=== PATIENT | male | born 1945 | race Hispanic/Latino ===

== ENCOUNTER → 2017-11-20 | Outpatient (CLI) | payer OTHER ==
[~2017-11-20] VITALS: Ht 157.5 cm; Wt 84.4 kg
[~2017-11-20] MED LIST: REGADENOSON 0.4 MG/5 ML PF SYG IVP SCH
== END | disposition home or self-care (01) ==
LOC: EDUNIT# 08:00 → SHCH 10:00
PROVIDERS: ATTEND Internal Medicine Cardiovascular Disease
DX: I25.810 Atherosclerosis of coronary artery bypass graft(s) without angina pectoris (principal); R07.9 Chest pain, unspecified
CPT/HCPCS: 78452; 93017; 96374; A9500 ×2; J2785

== ENCOUNTER → 2020-02-04 | Outpatient (CLI) | payer OTHER ==
[~2020-02-04] VITALS: Ht 157.5 cm; Wt 78.0 kg
[2020-02-04 12:03] LABS: BASOPHILS % (AUTO) 0.6 % (0.0-5.0); EOSINOPHILS % (AUTO) 3.2 % (0.0-8.0); LYMPHOCYTES % (AUTO) 15.2 % (21.0-51.0); MEAN CORPUSCULAR HEMOGLOBIN 30.5 pg (27.0-33.0); MEAN CORPUSCULAR HGB CONC 33.9 g/dL (32.0-36.0); MEAN CORPUSCULAR VOLUME 89.9 fL (79-99); NEUTROPHILS % (AUTO) 73.4 % (40.0-77.0); PLATELET COUNT (AUTO) 148 K/uL (130-400); RED BLOOD CELL COUNT(AUTO) 4.56 MIL/uL (4.50-6.20); RED CELL DISTRIBUTION WIDTH 13.7 % (11.0-15.5); WHITE BLOOD COUNT (AUTO) 8.5 K/uL (4.8-10.8)
[2020-02-04 12:07] LABS: APPEARANCE,URINE Clear (CLEAR); BILIRUBIN,URINE Negative (NEGATIVE); COLOR,URINE Yellow (YELLOW); GLUCOSE, URINE (UA) Negative (NEGATIVE); KETONES,URINE Negative (NEGATIVE); LEUKOCYTE ESTERASE ,URINE Negative (NEGATIVE); NITRATE,URINE Negative (NEGATIVE); OCCULT BLOOD,URINE Negative (NEGATIVE); PH,URINE 5.5 (5.0-8.0); PROTEIN,URINE Negative (NEGATIVE)
[2020-02-04 12:15] LABS: INR 0.91 (0.85-1.15); PROTHROMBIN TIME 9.9 SEC (9.6-11.6)
[2020-02-04 12:53] LABS: CREATININE 1.2 mg/dL (0.5-1.5); POTASSIUM 4.4 mmol/L (3.5-5.1)
--- NOTE | 2020-02-07 09:50 | NUR ---
DR VUONG NOTIFIED WITH ABNORMAL LAB RESULTS- INFORMED OF POSITIVE COVID RESULT- MD PENDING VERIFICATION TO PROCEED FROM INFECTION CONTROL. WILL FOLLOW UP WITH HIS REQUEST TO VERIFY IF THIS CASE IS APPROVED TO PROCEED
--- NOTE | 2020-02-07 12:22 | NUR ---
DR VUONG HAS CANCELLED PROCEDURE . WILL RESCHEDULE AT LATER DATE. PT NOTIFIED OF POSITIVE COVID RESULT AND CANCELLATION OF PROCEDURE. HE WILL QUARANTINE UNTIL FURTHER NOTICE. I TRIED TO CALL DR VUONG OFFICE BUT NO ANSWER. KINJAL OR [employer]OUR STITCHER NOTIFIED OF CANCELLATION
== END | disposition home or self-care (01) ==
LOC: DAH 12:00 → EDSTATUS 15:00
PROVIDERS: ATTEND Orthopaedic Surgery
DX: U07.1 COVID-19 (principal); Z01.812 Encounter for preprocedural laboratory examination; M17.12 Unilateral primary osteoarthritis, left knee; I25.810 Atherosclerosis of coronary artery bypass graft(s) without angina pectoris; Z79.899 Other long term (current) drug therapy; Z95.1 Presence of aortocoronary bypass graft
CPT/HCPCS: 36415; 80048; 81003; 85025; 85610; 87641; U0003

== ENCOUNTER → 2020-02-17 | Outpatient (CLI) | payer OTHER ==
[~2020-02-17] VITALS: Ht 157.5 cm; Wt 78.0 kg
[~2020-02-17] MED LIST changes: +CEFAZOLIN SODIUM 1 GM VIAL IVP SCH; -REGADENOSON 0.4 MG/5 ML PF SYG IVP SCH
[2020-02-17 11:18] LABS: CREATININE 1.4 mg/dL (0.5-1.5); POTASSIUM 4.9 mmol/L (3.5-5.1)
[2020-02-17 11:22] LABS: BASOPHILS % (AUTO) 0.6 % (0.0-5.0); EOSINOPHILS % (AUTO) 1.3 % (0.0-8.0); HEMATOCRIT 44.2 % (42-54); LYMPHOCYTES % (AUTO) 13.6 % (21.0-51.0); MEAN CORPUSCULAR HEMOGLOBIN 30.2 pg (27.0-33.0); MEAN CORPUSCULAR HGB CONC 33.7 g/dL (32.0-36.0); MEAN CORPUSCULAR VOLUME 89.5 fL (79-99); MONOCYTES % (AUTO) 7.2 % (3.0-13.0); NEUTROPHILS % (AUTO) 76.9 % (40.0-77.0); PLATELET COUNT (AUTO) 154 K/uL (130-400); RED BLOOD CELL COUNT(AUTO) 4.94 MIL/uL (4.50-6.20); RED CELL DISTRIBUTION WIDTH 13.6 % (11.0-15.5); WHITE BLOOD COUNT (AUTO) 8.5 K/uL (4.8-10.8)
[2020-02-17 11:23] LABS: APPEARANCE,URINE Clear (CLEAR); BILIRUBIN,URINE Negative (NEGATIVE); COLOR,URINE Yellow (YELLOW); GLUCOSE, URINE (UA) Negative (NEGATIVE); KETONES,URINE Negative (NEGATIVE); LEUKOCYTE ESTERASE ,URINE Trace (NEGATIVE); NITRATE,URINE Negative (NEGATIVE); OCCULT BLOOD,URINE Negative (NEGATIVE); PH,URINE 5.5 (5.0-8.0); PROTEIN,URINE Negative (NEGATIVE)
[2020-02-17 11:33] LABS: BACTERIA,URINE Rare /HPF (None Seen); RBC,URINE 0-1 /HPF (0-1); SQUAMOUS EPITHELIAL CELL,UR Rare /HPF (0-2); WBC,URINE 0-1 /HPF (0-1)
[2020-02-17 11:36] LABS: INR 0.93 (0.85-1.15); PROTHROMBIN TIME 10.1 SEC (9.6-11.6)
== END | disposition home or self-care (01) ==
LOC: EDSTATUS 09:00 → DAH 10:00 → EDSTATUS 02-24 09:00
PROVIDERS: ATTEND Orthopaedic Surgery
DX: Z20.828 Contact with and (suspected) exposure to other viral communicable diseases (principal); M17.12 Unilateral primary osteoarthritis, left knee; M25.562 Pain in left knee; I25.810 Atherosclerosis of coronary artery bypass graft(s) without angina pectoris
CPT/HCPCS: 36415; 80048; 81001; 85025; 85610; 87641; U0003

== ENCOUNTER → 2021-07-01 | Outpatient (CLI) | payer OTHER ==
[~2021-07-01] MED LIST changes: +ACET-66 PO; +AMLO-258 PO; +ASPI-1005 PO; +BENA40TA92 PO; +BUDESONIDE IN; -CEFAZOLIN SODIUM 1 GM VIAL IVP SCH; +EZET10TA48 PO; +FURO40TA5 PO; +GABA-529 PO; +HYDR-4457 PO; +INSLAN SQ; +INSU100I3 SQ; +ISOS30TA92 PO; +METF-444 PO; +METO100T14 PO; +MULT-1203 PO; +SERT-440 PO; +TRAZ-185 PO; +albuterol IH
== END | disposition home or self-care (01) ==
LOC: SHCH 08:24
PROVIDERS: ATTEND Internal Medicine Cardiovascular Disease
DX: I65.23 Occlusion and stenosis of bilateral carotid arteries (principal)
CPT/HCPCS: 93880

== ENCOUNTER → 2022-02-16 | Outpatient (CLI) | payer OTHER ==
[~2022-02-16] MED LIST changes: +IOHEXOL 350 MG/ML 100ML INFUS..BTL IV ONE
== END | disposition home or self-care (01) ==
LOC: RAH 08:48
PROVIDERS: ATTEND Internal Medicine Cardiovascular Disease
DX: I65.22 Occlusion and stenosis of left carotid artery (principal)
CPT/HCPCS: 70498; Q9967

== ENCOUNTER 2022-09-28 11:00 | Observation (INO) | payer OTHER ==
[2022-09-22 10:10] LABS: BASOPHILS % (AUTO) 0.4 % (0.0-5.0); EOSINOPHILS % (AUTO) 2.6 % (0.0-8.0); HEMATOCRIT 42.5 % (42-54); LYMPHOCYTES % (AUTO) 13.1 % (21.0-51.0); MEAN CORPUSCULAR HEMOGLOBIN 29.3 pg (27.0-33.0); MEAN CORPUSCULAR HGB CONC 34.1 g/dL (32.0-36.0); MEAN CORPUSCULAR VOLUME 85.9 fL (79-99); MONOCYTES % (AUTO) 5.3 % (3.0-13.0); NEUTROPHILS % (AUTO) 78.1 % (40.0-77.0); PLATELET COUNT (AUTO) 135 K/uL (130-400); RED BLOOD CELL COUNT(AUTO) 4.95 MIL/uL (4.50-6.20); RED CELL DISTRIBUTION WIDTH 13.5 % (11.0-15.5); WHITE BLOOD COUNT (AUTO) 7.3 K/uL (4.8-10.8)
[2022-09-22 10:12] LABS: APPEARANCE,URINE CLEAR (CLEAR); BILIRUBIN,URINE NEGATIVE (NEGATIVE); COLOR,URINE LIGHT-YELLOW (YELLOW); GLUCOSE, URINE (UA) 300 mg/dL (NEGATIVE); KETONES,URINE NEGATIVE (NEGATIVE); LEUKOCYTE ESTERASE ,URINE NEGATIVE Leu/uL (NEGATIVE); NITRATE,URINE NEGATIVE (NEGATIVE); OCCULT BLOOD,URINE NEGATIVE (NEGATIVE); PH,URINE 6.5 (5.0-8.0); PROTEIN,URINE 30 mg/dL (NEGATIVE); UROBILINOGEN,URINE 0.2 mg/dL (0.2-1.0)
[2022-09-22 10:18] LABS: CREATININE 1.4 mg/dL (0.5-1.5); POTASSIUM 4.4 mmol/L (3.5-5.1)
[2022-09-22 10:22] LABS: INR 0.93 (0.85-1.15)
[2022-09-22 10:23] VITALS: BP 141/69
[2022-09-22 10:23] LABS: PARTIAL THROMBOPLASTIN TIME 24.4 SEC (26.3-35.5)
[2022-09-22 10:46] LABS: BACTERIA,URINE RARE /HPF (None Seen); RBC,URINE 0-1 /HPF (0-1)
[2022-09-22 11:11] LABS: B-TYPE NATRIURETIC PEPTIDE 102 pg/mL (0-100)
[~2022-09-28] VITALS: Ht 157.5 cm; Wt 69.4 kg
[2022-09-28] VITALS (11 sets, daily range): BP systolic 121–153; BP diastolic 53–79
[~2022-09-28 11:00] MED LIST changes: -AMLO-258 PO; -ASPI-1005 PO; +ATOR40TA69 PO; -BENA40TA92 PO; -BUDESONIDE IN; +CHOL100040 PO; +CLOP75TA32 PO; -EZET10TA48 PO; -GABA-529 PO; -HYDR-4457 PO; -INSLAN SQ; -INSU100I3 SQ; -IOHEXOL 350 MG/ML 100ML INFUS..BTL IV ONE; -METF-444 PO; -METO100T14 PO; +METO200T49 PO; -MULT-1203 PO; +NITR0.4T50 SL; +POTA-200 PO; -TRAZ-185 PO; -albuterol IH
[2022-09-28] MEDS ORDERED: 0.9%NACL 1000ML 1,000 ML IV ONE (12:02)
[2022-09-28] MEDS ORDERED: ASPI-1197 PO (12:40)
[2022-09-28] MEDS ORDERED: LIDOCAINE HCL 400MG/20ML VIAL ONE (15:26)
[2022-09-28] MEDS ORDERED: MIDAZOLAM HCL 1 MG/ML 2ML VIAL ONE (15:26)
[2022-09-28] MEDS ORDERED: HEPARIN 10,000 UNIT/10ML (1,000 UNIT/ML) VIAL ONE (15:26)
[2022-09-28] MEDS ORDERED: MEPERIDINE-PF 25 MG/ML SYG ONE (15:26)
[2022-09-28] MEDS ORDERED: IOHEXOL 350 MG/ML 100ML INFUS..BTL IV ONE (15:28)
[2022-09-28] MEDS ORDERED: IOHEXOL-350 50ML VIAL IV ONE (15:28)
[2022-09-28] MEDS ORDERED: HYDRALAZINE 20MG/ML VIAL ONE (16:17)
[2022-09-28] MEDS ORDERED: NITROGLYCERIN 0.4 MG SL TAB SL PRN (17:00)
[2022-09-28] MEDS: 0.9%NACL 1000ML 1,000 ML IV SCH (17:59)
[2022-09-28] MEDS ORDERED: ATORVASTATIN 40 MG TABLET PO SCH (21:00)
[2022-09-28] MEDS: ACETAMINOPHEN 500 MG TABLET PO PRN (23:06)
[2022-09-29] MEDS: 0.9%NACL 1000ML 1,000 ML IV SCH (02:14)
[2022-09-29 03:27] LABS: HEMATOCRIT 37.1 % (42-54); MEAN CORPUSCULAR HEMOGLOBIN 29.8 pg (27.0-33.0); MEAN CORPUSCULAR VOLUME 85.1 fL (79-99); RED BLOOD CELL COUNT(AUTO) 4.36 MIL/uL (4.50-6.20); RED CELL DISTRIBUTION WIDTH 13.7 % (11.0-15.5); WHITE BLOOD COUNT (AUTO) 7.5 K/uL (4.8-10.8)
[2022-09-29 03:39] LABS: CREATININE 1.6 mg/dL (0.5-1.5); POTASSIUM 3.7 mmol/L (3.5-5.1)
[2022-09-29 04:14] VITALS: BP 132/57
[2022-09-29] MEDS: ACETAMINOPHEN 500 MG TABLET PO PRN (05:53)
[2022-09-29 07:47] VITALS: BP 144/57
[2022-09-29 08:50] VITALS: BP 155/49
[2022-09-29] MEDS ORDERED: CLOPIDOGREL 75MG TAB PO SCH (09:00)
[2022-09-29] MEDS ORDERED: FAMOTIDINE 20MG TAB PO SCH (09:00)
[2022-09-29] MEDS ORDERED: POTASSIUM CHLORIDE 10MEQ SR TAB PO SCH (09:00)
[2022-09-29] MEDS ORDERED: (Cholecalciferol (Vitamin D3) (Vitamin D3) 25 MCG) PO SCH (09:00)
[2022-09-29] MEDS ORDERED: SERTRALINE HCL 50 MG TABLET PO SCH (09:00)
[2022-09-29] MEDS ORDERED: METOPROLOL SUCCINATE 50 MG TAB.SR.24H PO SCH (09:00)
[2022-09-29] MEDS ORDERED: ASPIRIN 81MG CHEW TAB PO SCH (09:00)
[2022-09-29] MEDS ORDERED: ISOSORBIDE MONO 30MG SR TAB PO SCH (09:00)
[2022-09-29] MEDS ORDERED: FUROSEMIDE 40 MG TABLET PO SCH (09:00)
[2022-09-29 12:14] VITALS: BP 134/50
== END 2022-09-29 12:42 | disposition home or self-care (01) ==
LOC: DAH 11:00 → DAHIP 11:01 → 2DH 17:20
PROVIDERS: ADMIT Internal Medicine; ATTEND Internal Medicine
DX: I25.10 Atherosclerotic heart disease of native coronary artery without angina pectoris (principal); I13.10 Hypertensive heart and chronic kidney disease without heart failure, with stage 1 through stage 4 chronic kidney disease, or unspecified chronic kidney disease; N18.30 Chronic kidney disease, stage 3 unspecified; S30.1XXA Contusion of abdominal wall, initial encounter; E11.22 Type 2 diabetes mellitus with diabetic chronic kidney disease; I65.22 Occlusion and stenosis of left carotid artery; E78.00 Pure hypercholesterolemia, unspecified; I70.8 Atherosclerosis of other arteries; Z79.4 Long term (current) use of insulin; Z95.1 Presence of aortocoronary bypass graft; Z96.652 Presence of left artificial knee joint; Z79.82 Long term (current) use of aspirin; Z79.84 Long term (current) use of oral hypoglycemic drugs; Z98.61 Coronary angioplasty status; Z79.899 Other long term (current) drug therapy; Z98.890 Other specified postprocedural states
CPT/HCPCS: 80048 ×2; 83880; 85025; 85610; 85730; 81001; 36415 ×2; 71045; 93005; 36223; 75710; 93459; 82948; 76882 ×2; 85027; C1894; C1760; Q9965 ×2; G0378 ×20; J3490; J7030; J0360; J2250; J2175; J1644; Q9967; A4215; A4223 ×3; A4222; A4221; A4663; A4216; A4606

== ENCOUNTER → 2022-11-28 | Outpatient (CLI) | payer OTHER ==
[~2022-11-28] MED LIST changes: +ASPI-1197 PO; -FURO40TA5 PO; +INSULIN SQ; -ISOS30TA92 PO; +METF-444 PO; -METO200T49 PO; +MVIT PO; -NITR0.4T50 SL
[2022-11-28 16:29] LABS: BASOPHILS % (AUTO) 0.4 % (0.0-5.0); EOSINOPHILS % (AUTO) 2.3 % (0.0-8.0); HEMATOCRIT 29.2 % (42-54); LYMPHOCYTES % (AUTO) 14.7 % (21.0-51.0); MEAN CORPUSCULAR HGB CONC 32.9 g/dL (32.0-36.0); MEAN CORPUSCULAR VOLUME 94.2 fL (79-99); MONOCYTES % (AUTO) 8.5 % (3.0-13.0); NEUTROPHILS % (AUTO) 73.5 % (40.0-77.0); PLATELET COUNT (AUTO) 159 K/uL (130-400); RED CELL DISTRIBUTION WIDTH 15.5 % (11.0-15.5); WHITE BLOOD COUNT (AUTO) 5.3 K/uL (4.8-10.8)
[2022-11-28 16:44] LABS: ALBUMIN 3.6 g/dL (3.5-5.0); CREATININE 1.2 mg/dL (0.5-1.5); MAGNESIUM 1.4 mg/dL (1.80-2.40); TOTAL PROTEIN, SERUM 6.6 g/dL (6.0-8.3)
== END | disposition home or self-care (01) ==
LOC: LAB 13:00
PROVIDERS: ATTEND Physician Assistant
DX: I10 Essential (primary) hypertension (principal); E78.5 Hyperlipidemia, unspecified
CPT/HCPCS: 36415; 80053; 83735; 83880; 85025

== ENCOUNTER → 2023-01-21 | Outpatient (CLI) | payer OTHER | END | disposition home or self-care (01) | LOC: SHCH 09:28 | PROVIDERS: ATTEND Internal Medicine Cardiovascular Disease | DX: I65.23 Occlusion and stenosis of bilateral carotid arteries (principal); Z95.828 Presence of other vascular implants and grafts | CPT/HCPCS: 93880 ==